=== PATIENT | female | born 1980 | race Caucasian/White ===

== ENCOUNTER 2024-02-13 09:15 | Emergency (ER) | payer OTHER, SELFPAY ==
[2024-02-13 09:16] VITALS: BP 135/94; PULSE 80; RESP 14; TEMP 36.3; O2SAT 100; BMI 23.9
--- NOTE | 2024-02-13 09:28 | RAD_ITS ---
STUDY: X-RAY - RIGHT HAND REASON FOR EXAM: Female, 43 years old. Injury. TECHNIQUE: 3 view(s) of the hand. COMPARISON: None. FINDINGS: There is no evidence of fracture or dislocation. There are no significant degenerative changes. There are no radiodense foreign bodies. RAD/Hand Min 3 Views IMPRESSION: No fracture or dislocation. Electronically Signed: Demarco Rea MD at 9:41 EDT ,
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
[2024-02-13] MEDS: Ibuprofen 600 MG Tablet PO (09:43)
== END 2024-02-13 09:59 | disposition home or self-care (01) ==
LOC: ED 09:57
PROVIDERS: Emergency Provider Emergency Medicine; PCP Family Medicine; Visit Provider Emergency Medicine
DX: M79.641 Pain in right hand (principal)
CPT/HCPCS: 73130; 99282

== ENCOUNTER 2025-04-24 11:04 | Emergency (ER) | payer OTHER, SELFPAY ==
--- OUTSIDE RECORDS SUMMARY | 2024-12-08 09:23 | XMS RPT_ITS ---
Author Name Auto Generated Organization [facility] Care Team Providers Care Car Ferry Master Name Role Phone ALISA QUINONES Attending Unavailable ALISA QUINONES Referring Unavailable ALISA QUINONES Primary Care Unavailable PROBLEMS DATE TYPE CONDITION / CODE ATTENDING STATUS SALVADOR RCE 12/08/2024 Admitting Diagnosis Encounter fo r screening mammogram for malignant neoplasm of breast / Z12.31(ICD-10) ALISA QUINONES Active [facility] PROCEDURES No Procedure Records Found RESULTS No Result Records Found ALLERGIES No Allergies Records Found ENCOUNTERS ADMIT/DISCHARGE ACCOUNT NUMBER ADMITTING ENCOUNTER CLASS LOC ATION SOURCE 12/08/2024/12/08/2024 [id number] Ambulatory [place] [id number] [facility] PAYERS ENCOUNTER GUARANTOR PAYER SUBSCRIBER SOURCE 12/08/2024 Primary Insurance:[employer] icy Number: [id number] e Date:[id number] Name:Commercial OMAR Wilder DAILYDOB: [id number] [address] [facility]
[2025-04-24 11:04] VITALS: BP 142/98; PULSE 89; RESP 14; TEMP 36.6; O2SAT 98; BMI 21.7
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
[2025-04-24 11:58] LABS: Hematocrit 40.0 % (37-47); Hemoglobin 14.1 g/dL (12.0-15.0); Immature Granulocytes Count 0.040 X10^3/uL (0.0-0.0); Mean Corp Hgb Conc 35.3 g/dL (32-36); Mean Corpuscular Volume 90.3 fL (81-99); Mean Platelet Vol. 9.3 fl (6.2-12.0); NRBC Flagged by Analyzer 0 % (0-5); Platelet Count 333 K/mm3 (150-450); RBC Distribution Width CV 12.3 % (11.6-14.6); RBC Distribution Width SD 40.9 fl (35.1-43.9); Red Blood Count 4.43 M/mm3 (4.2-5.4); White Blood Count 8.8 K/mm3 (4.4-11.0)
[2025-04-24 12:03] VITALS: PULSE 73; RESP 14
--- NOTE | 2025-04-24 12:20 | RAD_ITS ---
PROCEDURE: CHEST PA AND LATERAL 04/24/2025 REASON FOR EXAM: CHEST PAIN TECHNIQUE: Procedure Code: RADCXR Modality: DX Procedure: CHEST PA AND LATERAL COMPARISON: None. RAD/Chest PA and Lateral IMPRESSION: No pleural effusion or pneumothorax is noted. Lungs appear clear throughout. The cardiomediastinal silhouette is within the normal range. No acute osseous changes noted. Jytw-[id number]-iyhkjqng degenerative changes are seen of the visualized mid to lower c ervical spine. No evidence of acute cardiopulmonary disease. Reading Location: [id number]
[2025-04-24 12:56] LABS: Anion Gap 11 (5-15); BUN 10 mg/dL (4-19); BUN/Creat Ratio 17.2 RATIO (10-20); Calcium,Total 9.5 mg/dL (7.6-11.0); Carbon Dioxide 24.0 mmol/L (21.0-32.0); Chloride 103 mmol/L (98-108); Estimated Creatinine Clearance 93.65 ml/min (50-250); Glucose 121 mg/dL (70-99); Potassium 4.3 mmol/L (3.3-5.1); Troponin T High Sensitivity < 6 ng/L (<=14)
[2025-04-24 13:00] VITALS: BP 126/87; PULSE 79; RESP 19; O2SAT 100
[2025-04-24 13:14] VITALS: BP 126/87; PULSE 79; RESP 19; TEMP 36.6; O2SAT 100
== END 2025-04-24 13:23 | disposition home or self-care (01) ==
PROVIDERS: Emergency Provider Emergency Medicine; PCP Family Medicine; Visit Provider Emergency Medicine
DX: J20.8 Acute bronchitis due to other specified organisms (principal); Z79.899 Other long term (current) drug therapy
CPT/HCPCS: 71046; 80048; 84484; 85025; 93005; 94640; 99284